=== PATIENT | male | born 1960 | race Caucasian/White ===

== ENCOUNTER 2017-06-28 18:40 | Emergency (ER) | payer OTHER ==
[~2017-06-28] VITALS: Ht 188 cm; Wt 134.0 kg
[2017-06-28 18:42] VITALS: BP 160/82; PULSE 93; RESP 18; TEMP 98.3; O2SAT 96
[2017-06-28] MEDS ORDERED: LIDOCAINE HCL 1% 20 ML VIAL INFIL ONE (19:00)
[2017-06-28] MEDS ORDERED: ALLO100T PO (19:01)
--- NOTE | 2017-06-28 19:08 | PD ---
HPI Chief Complaint: Foreign Body Time Seen by Provider: 18:49 Travel History International Travel<30 days: No Contact w/Intl Traveler<30days: No Traveled to known affect area: No History of Present Illness HPI 57-year-old male that presents to the ED for evaluation of a fishhook stuck to his left first digit. Per patient is happened less than 30 minutes ago. Per patient he himself tried to get it removed but he cannot get it out so he decided to come here to get it checked. Per patient he denies any pain with it. Per patient is barely any discomfort to it. Per patient his medicines are well infection as the fishhook was used to the catch fish when he got it stuck on his finger. He denies any other medical issues. Denies any numbness, tingling, weakness. Per patient is up-to-date with his tetanus within the past 5 years. Pain per patient is minimal and is 2 out of 10. He is to medication. No other medical issues. PFSH Past Medical History Hx Anticoagulant Therapy: Yes (asa) Medical other: Yes (gout) Social History Alcohol Use: No Tobacco Use: No Substance Use: No Allergies-Medications (Allergen,Severity, Reaction): Coded Allergies: No Known Allergies (Unverified , 06/28/17) Reported Meds & Prescriptions Reported Meds & Active Scripts Active Doxycycline Hyclate 100 Mg Cap 100 Mg PO BID 7 Days Reported Allopurinol 100 Mg Tab Unknown Dose PO BID Review of Systems Except as stated in HPI: all other systems reviewed are Neg Physical Exam Narrative GENERAL: SKIN: Warm and dry. HEAD: Atraumatic. Normocephalic. EYES: Pupils equal and round. No scleral icterus. No injection or drainage. ENT: No nasal bleeding or discharge. Mucous membranes pink and moist. NECK: Trachea midline. No JVD. CARDIOVASCULAR: Regular rate and rhythm. RESPIRATORY: No accessory muscle use. Clear to auscultation. Breath sounds equal bilaterally. GASTROINTESTINAL: Abdomen soft, non-tender, nondistended. Hepatic and splenic margins not palpable. MUSCULOSKELETAL: Extremities without clubbing, cyanosis, or edema. No obvious deformities. Full range of motion of all fingers of the left hand. Patient has a superficial fishhook stuck to his left first digit. Slightly tender to touch. Minimal puncture wound noted. Full range of motion of the digit with good capillary refill and good sensation. NEUROLOGICAL: Awake and alert. No obvious cranial nerve deficits. Motor grossly within normal limits. Five out of 5 muscle strength in the arms and legs. Normal speech. PSYCHIATRIC: Appropriate mood and affect; insight and judgment normal. Data Data Last Documented VS Vital Signs Date Time Temp Pulse Resp B/P (MAP) Pulse Ox O2 Delivery O2 Flow Rate FiO2 06/28/17 18:42 98.3 93 18 160/82 (108) 96 Orders Orders Lidocaine 1% Inj (Xylocaine 1% Inj) (06/28/17 19:00) Ed Discharge Order (06/28/17 19:07) [facility] Medical Decision Making Medical Screen Exam Complete: Yes Emergency Medical Condition: Yes Medical Record Reviewed: Yes Differential Diagnosis [place] removal versus fishhook versus foreign body Narrative Course 57-year-old male that presents to the ED for evaluation of facial per mobile. Patient was probably examined and was found to have signs and symptoms consistent what appeared to be a fishhook. I recommend removing it. After patient agreed for fishhook was removed was then procedure note. Dressing was applied. Patient was given a prescription for doxycycline to cover for marine organisms. Wound care was endorsed. Follow with PCP. See ED worsening symptoms. Procedures Procedure Narrative Fishook removal procedure: After explaining procedure to the patient and verbal consent was obtained as well as assessing wound for no neurovascular, tendon or bony involvement. Using 1% lidocaine, about 6 ml, area was properly anesthesized. Using sterile saline and bethadine area was sterilized and using sterile scalpel as well as twizzers fishook was removed using backwards pressure with success and complete removal of fishook. Area was reassesed and neurovascurly intact. Area was washed with saline and antibiotic ointment as well as sterile dressing applied. Patient was counseled on wound care. Diagnosis Primary Impression: Fish hook injury of finger Qualified Codes: S69.92XA - Unspecified injury of left wrist, hand and finger( s), initial encounter Patient Instructions: General Instructions Additional Instructions: Keep area nice and clean. Wash with soap and water. Iodine. Follow-up with PCP. See ED worsening symptoms. Take medication as prescribed. Med/Other Pt SpecificInfo: Prescription(s) given Scripts Doxycycline Hyclate (Doxycycline Hyclate) 100 Mg Cap 100 MG PO BID for Infection for 7 Days, #14 CAP 0 Refills Prov: Semaj Almanza MD 06/28/17 Disposition: 01 DISCHARGE HOME Condition: Stable Gustavo Caicedo Jun 28, 2017 19:08
[2017-06-28] MEDS ORDERED: DOXY100C PO (19:09)
== END 2017-06-28 19:23 | disposition home or self-care (01) ==
LOC: PHEFT 18:40
DX: S61.042A Puncture wound with foreign body of left thumb without damage to nail, initial encounter (principal); W45.8XXA Other foreign body or object entering through skin, initial encounter; Y93.89 Activity, other specified; Y92.89 Other specified places as the place of occurrence of the external cause; Z79.01 Long term (current) use of anticoagulants
CPT/HCPCS: 10120